=== PATIENT | female | born 1960 | race African-American/Black ===

== ENCOUNTER 2016-11-23 16:28 | Outpatient (CLI) | payer OTHER ==
--- NOTE | 2016-11-24 09:36 | MRI ---
MRI OF THE LEFT KNEE WITHOUT CONTRAST: Date: 11/23/16 INDICATION: Anterior left knee pain. COMPARISON: None. FINDINGS: There is mild diffuse chondrosis involving the medial patellar facet without evidence of a full thic kness articular cartilage defect. Mild chondrosis seen involving the central femoral trochlea. There is a tiny, semimembranosus-medial gastrocnemius popliteal cyst. The ACL, PCL, MCL, and LCLC are int act. There is some intrinsic intrasubstance increased T2 signal involving the posterior aspect of the bod y of the medial meniscus without evidence of discrete tear. The lateral meniscus is intact. Articula r cartilage of the femorotibial compartments appears relatively well maintained. There are tiny yessenia inal osteophytes seen involving the femorotibial compartments bilaterally. Small subchondral degener ative-type cysts are seen underlying the PCL attachment to the tibia. The extensor mechanism is inta ct. IMPRESSION: 1. Mild chondrosis of the medial patellar articular cartilage and central femoral trochlea without evidence of focal full thickness defect. 2. Medial and lateral menisci appear intact. 3. The ACL, PCL, MCL, and LCLC are intact. POS: [facility]
== END 2016-11-23 16:29 | disposition home or self-care (01) ==
LOC: MRI 16:28
PROVIDERS: ATTEND Internal Medicine
DX: M25.562 Pain in left knee (principal); M22.2X2 Patellofemoral disorders, left knee

== ENCOUNTER 2018-04-22 08:41 | Outpatient (CLI) | payer OTHER ==
--- NOTE | 2018-04-22 10:57 | ULT ---
PELVIC ULTRASOUND: COMPARISON: 05/07/2016. HISTORY: Pelvic pain. TECHNIQUE: Transabdominal and endovaginal imaging of the pelvis is performed. Ovaries are interrogated with gra y scale, color flow, Doppler imaging, and spectral waveform analysis. FINDINGS: Limited evaluation of the uterus. There appears to be a solitary solid echotexture in the anterior u terus measuring 3.0 x 3.0 x 2.7 cm. Leiomyoma is favored. There appears to be a serosal component. Overall uterus measures 3.5 x 4.9 x 8.9 cm. Suboptimal evaluation of the endometrium. The left ovary is not appreciated. Limited evaluation of the right ovary. Possible right ovary measuring 1.2 x 1.1 x 1.3 cm. There is no free fluid. OVARIAN DOPPLER: There is vascular flow to the presumed right ovary. IMPRESSION: Suboptimal evaluation of the uterus. There does appear to be an anterior uterine leiomyoma. The pre vious study demonstrated multifocal uterine leiomyomas which are less evident on the current examinat ion, likely due to technical limitations. Better interrogation with pelvic MRI is recommended. POS: [facility]
== END 2018-04-22 08:42 | disposition home or self-care (01) ==
LOC: SCSULT 08:41
PROVIDERS: ATTEND Internal Medicine
DX: R10.2 Pelvic and perineal pain (principal)
CPT/HCPCS: 76856

== ENCOUNTER 2018-04-29 13:44 | Outpatient (CLI) | payer OTHER ==
--- NOTE | 2018-05-09 13:19 | MMO ---
Bilateral MAMMO Bilat Screen [facility]. CLINICAL HISTORY: Patient is 57 years old and is seen for screening. The patient has no family history of breast cancer. The patient has no personal history of cancer. VIEWS: The views performed were: bilateral craniocaudal and bilateral mediolateral oblique. FILMS COMPARED: The present examination has been compared to prior imaging studies performed at [facility] on 10/15/2010, 01/01/2014, 06/25/2015 and 09/08/2016. This study has been interpreted with the assistance of computer-aided detection. MAMMOGRAM FINDINGS: There are scattered fibroglandular densities. Finding 1: There are multiple stable focal asymmetries seen in both breasts. Finding 2: There are stable benign appearing calcifications seen in both breasts. IMPRESSION: ALL ABOVE FINDINGS ARE BENIGN. A ROUTINE FOLLOW-UP MAMMOGRAM IN 1 YEAR IS RECOMMENDED. ACR BI-RADS Category 2 - Benign finding MAMMOGRAPHY NOTE: 1. A negative mammogram report should not delay a biopsy if a dominant of clinically suspicious mass is present. 2. Approximately 10% to 15% of breast cancers are not detected by mammography. 3. Adenosis and dense breasts may obscure an underlying neoplasm.
== END 2018-04-29 13:45 | disposition home or self-care (01) ==
LOC: SCSMAMMO 13:44
PROVIDERS: ATTEND Internal Medicine
DX: Z12.31 Encounter for screening mammogram for malignant neoplasm of breast (principal)
CPT/HCPCS: 77067

== ENCOUNTER 2018-10-21 07:42 | Outpatient (CLI) | payer OTHER ==
[2018-10-21] MEDS ORDERED: Iopamidol 370 76% 100 ML VIAL ONE (09:00)
--- NOTE | 2018-10-21 10:28 | CT ---
CT OF THE ABDOMEN AND PELVIS WITH IV CONTRAST AND ENTERIC CONTRAST: INDICATION: Bloating and feeling full for quite some time. CONTRAST: 100 cc Isovue 370. COMPARISON: None. FINDINGS: The lung bases are clear. The gallbladder is surgically absent. There is a heterogeneously enhancing hypodensity within the right hepatic dome measuring 2.6 cm image 12 of series 8 suspicious for hemangioma but cannot be fully characterized on the current study. A smaller hypodensity is seen near the caudate lobe measuring 1.6 cm on image 20 of series 2 which may reflect a small cyst or possibly an additional hemangioma. There are cholecystectomy clips within th e gallbladder fossa. Pancreas, adrenal glands, and kidneys are normal-appearing. The spleen is normal-appearing. No free fluid or enlarged lymph nodes are evident. There are mild vascular calcifications involving the abd ominal aorta. There is a small fat-containing umbilical hernia. There is heterogeneous appearance to the uterus suspicious for underlying fibroids. The bladder, rec dayne, and perirectal soft tissues are unremarkable-appearing. There is a mild amount of retained stoo l within the colon. There is a normal appendix in the right lower quadrant. No free fluid or pathol ogically enlarged lymph nodes are evident within the pelvis. There is mild scattered degenerative and osteoarthritic change. IMPRESSION: 1. Heterogeneously enhancing hypodensity within the right hepatic dome may reflect a tiny hemangioma . A followup CT or MR examination utilizing hemangioma protocol would be helpful for full characteri zation. 2. Hypodensity within the caudate head has Hounsfield units that are somewhat indeterminate. Would recommend further characterization with the above-mentioned cross-sectional imaging. 3. Cholecystectomy. 4. A mild amount of retained stool within the colon. 5. Heterogeneous and lobulated appearance of the uterus suspicious for underlying fibroid disease. 6. Normal appendix. POS: [facility]
== END 2018-10-21 07:43 | disposition home or self-care (01) ==
LOC: SCSCT 07:42
PROVIDERS: ATTEND Internal Medicine
DX: R14.0 Abdominal distension (gaseous) (principal); R19.5 Other fecal abnormalities; Z90.49 Acquired absence of other specified parts of digestive tract
CPT/HCPCS: 74177

== ENCOUNTER 2018-11-10 07:34 | Outpatient (CLI) | payer OTHER ==
[2018-11-10] MEDS ORDERED: Iopamidol 370 76% 100 ML VIAL ONE (09:00)
--- NOTE | 2018-11-10 11:52 | CT ---
CT ABDOMEN ONLY WITHOUT AND WITH CONTRAST: Date: 11/10/18 COMPARISON: None. HISTORY: Tiredness and weakness. Liver lesions seen on prior CT. TECHNIQUE: Multiple contiguous axial images were obtained in a CT of the abdomen only without and with IV contra st. Postcontrast images were obtained in the arterial, portal venous, an delayed phases. Coronal refo rmats were performed. FINDINGS: The patient is status post cholecystectomy. There is a 2.7 cm lesion in the central liver. This demon strates puddling on the portal venous phase images and fills in on the delayed phase images, consiste nt with a hemangioma. There is a nonenhancing cyst in the caudate lobe of the liver. The kidneys, adrenal glands, spleen, and pancreas are unremarkable. No free air, free fluid, or stran ding changes are seen in the abdomen. The visualized large and small bowel are unremarkable. Atherosclerotic calcifications are seen in the aorta. No abdominal adenopathy is seen. Degenerative changes are seen in the spine. The visualized inferior thorax and abdominal wall soft ti ssues are unremarkable. IMPRESSION: 1. Hepatic hemangioma. 2. Hepatic cysts. POS: [facility]
== END 2018-11-10 07:35 | disposition home or self-care (01) ==
LOC: SCSCT 07:34
PROVIDERS: ATTEND Internal Medicine
DX: K76.9 Liver disease, unspecified (principal); D18.03 Hemangioma of intra-abdominal structures; K76.89 Other specified diseases of liver
CPT/HCPCS: 74170; Q9967

== ENCOUNTER 2018-12-28 11:12 | Outpatient (CLI) | payer OTHER ==
[2018-12-28 12:20] LABS: #Eosinphils 0.2 thou/uL (0.0-0.7); #Lymphocytes 2.6 thou/uL (1.20-3.40); #Monocytes 0.5 thou/uL (0.11-0.59); #Neutrophils 2.9 thou/uL (1.40-6.50); %Basophils 0.4 % (0.0-1.0); %Eosinophils 2.8 % (0.0-10.0); %Lymphocytes 42.1 % (21.0-51.0); %Monocytes 7.5 % (0.0-10.0); %Neutrophils 47.2 % (42.0-75.0); Hemoglobin 12.5 g/dL (12.0-16.0); Mean Corpuscular HGB CONC 32.2 g/dL (32.0-36.0); Mean Corpuscular Hemoglobin 30.5 pg (27.0-31.0); Mean Corpuscular Volume 94.6 fL (78.0-98.0); Mean Platelet Volume 8.2 fL (7.4-10.4); Platelet Count 252 thou/uL (130-400); RBC Distribution Width 11.3 % (11.5-14.5); Red Blood Cell (RBC) Count 4.12 mill/uL (4.20-5.40); White Blood Cell (WBC) Count 6.1 thou/uL (4.8-10.8)
[2018-12-28 12:37] LABS: Anion Gap 10 mmol/L (10-20); BUN (Urea Nitrogen) 14 mg/dL (9.8-20.1); Calc. Creatinine Clearance 0 mL/min (70-130); Calcium 9.6 mg/dL (7.8-10.44); Carbon Dioxide 28 mmol/L (22-29); Chloride 106 mmol/L (98-107); Estimated GFR-MDRD Greater than 90; Glucose 85 mg/dL (70-105); Potassium 4.2 mmol/L (3.5-5.1); Sodium 140 mmol/L (136-145)
== END 2018-12-28 11:13 | disposition home or self-care (01) ==
LOC: LABBT 11:12
PROVIDERS: ATTEND Surgery
DX: Z01.818 Encounter for other preprocedural examination (principal); K43.9 Ventral hernia without obstruction or gangrene
CPT/HCPCS: 80048; 85025; 93005; 93010

== ENCOUNTER 2019-01-05 08:54 | Day surgery (SDC) | payer OTHER ==
[2018-12-28 11:43] VITALS: BMI 31.2
[2019-01-05] MEDS ORDERED: Ketorolac Tromethamine 30 MG/ML VIAL ONE (09:40)
[2019-01-05] MEDS ORDERED: Ondansetron PF 4 MG/2 ML Vial ONE (09:40)
[2019-01-05] MEDS ORDERED: Rocuronium Bromide 10 MG/ML (10ML VIAL) ONE (09:40)
[2019-01-05] MEDS ORDERED: Lidocaine 1% PF 5 ML VIAL ONE (09:40)
[2019-01-05] MEDS ORDERED: ePHEDrine/0.9% NaCl/PF SYRINGE 50 mg/10 ml ONE (09:40)
[2019-01-05] MEDS ORDERED: PROPOFOL 200 MG/20 ML VIAL ONE (09:40)
[2019-01-05] MEDS ORDERED: Glycopyrrolate 0.2 MG/ML 5 ML SYRINGE ONE (09:40)
[2019-01-05] MEDS ORDERED: Bupivacaine 0.25% HCL 30 ML VIAL ONE (11:16)
[2019-01-05] MEDS ORDERED: Midazolam HCl 2 mg/2 ml Vial ONE (11:33)
[2019-01-05] MEDS ORDERED: Fentanyl 100 MCG/2 ML VIAL ONE ×3 (11:33→14:17)
[2019-01-05] MEDS ORDERED: HYDROcodone/Acetaminophen 5/325 mg Tablet ONE (16:31)
--- NOTE | 2019-01-06 13:37 | OP ---
DATE OF PROCEDURE: 01/05/2019 PREOPERATIVE DIAGNOSIS: Ventral hernia. POSTOPERATIVE DIAGNOSIS: Ventral hernia. PROCEDURE PERFORMED: [place] laparoscopic ventral hernia repair with mesh, [address] ANESTHESIA: General. ESTIMATED BLOOD LOSS: Minimal. COMPLICATIONS: None. FINDINGS: Ventral hernia, supraumbilical. DESCRIPTION OF PROCEDURE: The patient was taken to the operating room and laid supine on the operating room table. After general anesthetic was obtained, a Angela was placed. The abdomen was shaved, prepped, and draped in a sterile fashion. Left subcostal 5-mm Optiview trocar was placed in usual fashion without injury and high-flow pneumoperitoneum was obtained. The patient had a hernia above the umbilicus, 11-mm balloon trocar was placed in the low abdomen and in the middle. Two 8-mm robot trocars were placed on each side, one robot assist trocar was placed on each side. All ports were docked to the robot. Surgeon goes to the console. The patient had a defect above the umbilicus. It was closed using 0 V-Loc suture. An 8-cm Ventralex ST mesh was brought in the sterile field, rolled and placed in the abdominal cavity. The mesh was sewn to the posterior fascia using running 2-0 V-Loc. All needles were removed from the abdomen. All port sites were infiltrated using local anesthetic. All ports were removed under direct visualization without bleeding. Pneumoperitoneum was let down. 4-0 Monocryl and Dermabond were used to close all skin incisions. The patient was sent to Recovery in stable condition. All instrument counts, needle counts, and lap counts were correct. Job ID: [id number]
== END 2019-01-05 18:14 | disposition home or self-care (01) ==
LOC: SDC 08:54
PROVIDERS: ATTEND Surgery
PROC: 0WUF4JZ Supplement Abdominal Wall with Synthetic Substitute, Percutaneous Endoscopic Approach (ICD-10-PCS; principal; 2019-01-05)
DX: K43.9 Ventral hernia without obstruction or gangrene (principal); E03.9 Hypothyroidism, unspecified; I10 Essential (primary) hypertension; Z79.899 Other long term (current) drug therapy
CPT/HCPCS: C1781; J0690; J1885; J2001; J2250; J2405; J2704; J3010; S0020

== ENCOUNTER 2019-11-03 14:12 | Outpatient (CLI) | payer BC ==
--- NOTE | 2019-11-03 14:47 | RAD ---
XR Cerv Sp Ap Lat STANDARD HISTORY: Neck pain and left shoulder pain COMPARISON: None. FINDINGS: There is loss of cervical lordosis with straightening of the cervical spine. Multilevel degenerative changes are present most prominent at C4-5, C5-6 and C6-7 levels. No acute fracture, subluxation or bony destruction is identified. Prevertebral soft tissues appear normal. IMPRESSION: Cervical spondylosis
== END 2019-11-03 14:13 | disposition home or self-care (01) ==
LOC: BICRAD 14:12
PROVIDERS: ATTEND Internal Medicine
DX: M54.2 Cervicalgia (principal); M47.812 Spondylosis without myelopathy or radiculopathy, cervical region
CPT/HCPCS: 72040

== ENCOUNTER 2025-01-15 10:26 | Outpatient (CLI) | payer BC | END 2025-01-15 10:27 | disposition home or self-care (01) | LOC: BICRAD 10:26 | PROVIDERS: ATTEND Internal Medicine | DX: M47.26 Other spondylosis with radiculopathy, lumbar region (principal); M47.27 Other spondylosis with radiculopathy, lumbosacral region; M47.22 Other spondylosis with radiculopathy, cervical region; M25.532 Pain in left wrist | CPT/HCPCS: 72040; 72100 ==